=== PATIENT | female | born 1980 | race Caucasian/White ===

== ENCOUNTER 2017-01-09 19:10 | Emergency (ER) | payer SELFPAY ==
[~2017-01-09] VITALS: Ht 167.6 cm; Wt 47.7 kg
[~2017-01-09 19:10] MED LIST: BUPR1TAB2 SL; COU5 PO; LOV40 SQ
[2017-01-09 19:19] VITALS: BP 120/73; PULSE 104; RESP 15; O2SAT 97
--- NOTE | 2017-01-09 20:26 | ED.REPORT ---
HPI-Rash / Abscess Date of Service Jan 09, 2017 ED Provider: Phuc Kitchen MD Pt is a 36 y/o female presenting to the ED c/o multiple sites of skin infections onset 2 weeks ago. The patient says her boyfriend had a streptococcal skin infection requiring admission to the hospital and she believes he may have infected her. She c/o left lateral thigh abscess, right lateral thigh abscess, left distal thumb swelling. Pt denies bowel or bladder incontinence, fever, chills, nausea, vomiting. She is also reporting an exacerbation of her infrequent chronic lower back pain. Nursing Notes Stated Complaint: BACK PAIN, INFECTED FINGER Chief Complaint: Skin Rash/Abscess Nursing Notes Reviewed: Yes Allergies: Coded Allergies: Potassium Clavulanate (Verified Adverse Reaction, Intermediate, Nausea, 01/09/17) amoxicillin trihydrate (Verified Adverse Reaction, Intermediate, Nausea, ) Scheduled Enoxaparin-Expunged Drug, Do Not Renew! (Lovenox-Expunged Drug, Do Not Renew!) 40 Mg/0.4 Ml Disp.syrin 50 MG SQ BID Mupirocin (Mupirocin Ointment) 22 Gm Oint...g. 1 APPLIC TOP TID Sulfamethoxazole/Trimeth 800-160 mg (Bactrim DS) 1 Each Tablet 1 TABLET PO BID Warfarin Inactive Drug Do Not Use (Coumadin Inactive Drug Do Not Use) 5 Mg Tablet 5 MG PO DAILY Miscellaneous Medications Bupren/Nal-Expunged Drug, Do Not Renew! (Suboxone 3-4iu-Zygqdoos Drug, Do Not Renew!) 1 Ea Tab.subl 1 EACH SL 1 tablet, twice a day, for 2 days, then... 0.5 tablet, twice a jorje, for 2 days, then... 0.5 tablet, daily, for 2 days, then stop General Time Seen by MD: 20:15 Chief Complaint Abscess Hx Obtained From: Patient Onset Occurred: More than a week ago... (2 weeks) Symptom Duration: Since onset Location: : Back Quality: Painful Severity: Current: Mild Severity: Maximum: Mild Similar Sx Previous: Yes Past Medical History Past Medical History None reported Past Surgical History None reported Smoking History Unknown if Ever Smoker Ambulatory Status Independent Review of Systems Constitutional: Denies: Chills, Fever Respiratory: Denies: Non-productive cough, Shortness of breath Cardiovascular: Denies: Chest pain, Dyspnea on exertion GI: Denies: Nausea, Vomiting Musculoskeletal: Reports: Back pain, Lumbar pain Skin: Reports Rash, Reports Swelling Complete sys rev & neg: except as marked. Neurologic: Denies: Bladder dysfunction, Bowel dysfunction Physical Exam Initial Vital Signs Vital Signs (First) Date Time Temp Pulse Resp B/P Pulse Ox O2 Delivery O2 Flow Rate FiO2 01/09/17 19:19 37.0 104 15 120/73 97 Room Air Initial VS: Reviewed, Vital signs abnormal Head / Eyes: Atraumatic, Normocephalic, PERRL ENT: Mucous membranes moist, Conjunctiva normal, No scleral icterus Neck: Supple, Full range of motion Respiratory: Breath sounds normal, Clear to auscultation, No respiratory distress Cardiovascular: Regular rate & rhythm, Heart sounds normal, Intact distal pulses Abdomen / GI: Soft, Non-tender Extremities: Vascular intact, Neuro intact, No swelling, No tenderness Neurologic: Alert, Oriented, Nonfocal Psychiatric: Mood/affect normal, Behavior normal, Normal thought content General/Constitutional: Awake, Alert, No acute distress, Cooperative, Not toxic appearing Behavior: Positive: Appears intoxicated Skin: Atraumatic, Warm Color / Condition: Positive: Rash present Rash / Lesion Notes: Scattered superficial pustular rashes over upper and lower extremities Re-Eval/Medical Decision Med Decision/Clinical Course Patient is a 28-year-old female with a history of polysubstance abuse who presents to the emergency department complaining of "pustules on her skin" that apparently present for several weeks. She states that her boyfriend was diagnosed with a skin infection and she thinks that it was passed on to her. Here in the emergency department she appears somewhat paranoid and is frequently picking at her skin and pacing about the examination room. She is borderline tachycardic though otherwise afebrile with stable vital signs. Examination reveals superficial pustules of her bilateral upper and lower extremities without any evidence of significant abscess or cellulitis. There are no regions of fluctuance amenable to incision and drainage. Her overall presentation is most consistent with folliculitis/superficial pustules, I suspect related to staph or MRSA colonization. She has been prescribed a course of Bactrim and topical mupirocin. She was also advised to use bleach baths if available though she is currently living in a trailer without a bathtub. No indication at this time for further workup or admission. Follow- up and return precautions were reviewed in detail with the patient and she verbalizes understanding and agreement with the plan. Re-Evaluation/Progress : Time of Eval: 20:49 Re-Evaluation/Progress Note: Pt rechecked. Informed pt of plan for treatment. Pt understands and agrees with plan for treatment. F/U instructions and RTER warnings given. All questions addressed. Counseled Regarding: Diagnosis, Need for follow-up, When/why to return to ED Discharge & Departure Impression: Primary Impression: Cellulitis Site of cellulitis: extremity Site of cellulitis of extremity: lower extremity Laterality: unspecified laterality Qualified Code: L03.119 - Cellulitis of unspecified part of limb Additional Impressions: Pustules determined by examination Polysubstance abuse Compulsive skin picking Tachycardia Disposition: Home Discharge Condition All VS Reviewed: Yes Condition: Stable Patient Instructions: Cellulitis (ED) Additional Instructions: Thank you for seeking care at the emergency room. It is difficult for us to make definitive diagnoses in the ED but we believe that you are experiencing multiple skin infections. Our primary goal today in the ED was to evaluate you for any life-threatening conditions. Your evaluation was reassuring. You will be discharged with a prescription for antibiotics and skin cream. Take these as directed. Soaking in warm baths will also be helpful. You should follow-up with your primary doctor in the next week. The [facility] would be happy to see you. You should return to the ED immediately if you develop spreading of the rash, increased swelling, fevers, vomiting, cough, shortness of breath, chest pain, lightheadedness, weakness or any other concerning signs or symptoms. Thank you for letting us partake in your care today. Referrals: [facility] Attestation Portions of this note were transcribed by Rex Rudolph. I, Dr. Kitchen personally performed the history, physical exam and medical decision-making; I reviewed and confirmed the accuracy of the information in the transcribed note. Signed by Erin Swenson, 01/09/17 - 2099 copies to: [facility] Phuc Kitchen MD Jan 09, 2017 20:26 REX RUDOLPH Jan 09, 2017 20:50
[2017-01-09] MEDS ORDERED: MUPI22OI2 TOP (20:51)
[2017-01-09] MEDS ORDERED: SULF1TAB7 PO (20:51)
[2017-01-09] MEDS ORDERED: Mupirocin 2% 22 Gm Ointment TOPICAL ONE (21:10)
== END 2017-01-09 21:16 | disposition home or self-care (01) ==
LOC: SED 19:10
DX: L03.116 Cellulitis of left lower limb (principal); L03.115 Cellulitis of right lower limb; L08.9 Local infection of the skin and subcutaneous tissue, unspecified; F42.4 Excoriation (skin-picking) disorder; R00.0 Tachycardia, unspecified; F15.10 Other stimulant abuse, uncomplicated; Z88.0 Allergy status to penicillin; Z88.8 Allergy status to other drugs, medicaments and biological substances